=== PATIENT | female | born 1995 | race Caucasian/White ===

== ENCOUNTER 2017-10-08 20:45 | Emergency (ER) | payer BC, OTHER ==
[~2017-10-08] VITALS: Ht 154.9 cm; Wt 64.8 kg
[2017-10-08 21:05] VITALS: Ht 154.9 cm; Wt 64.8 kg
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
[2017-10-08] MEDS ORDERED: ACET650S9 PR (23:51)
== END 2017-10-09 00:56 | disposition left against medical advice (07) ==
LOC: FTE 20:45
DX: S09.90XA Unspecified injury of head, initial encounter (principal); V49.40XA Driver injured in collision with unspecified motor vehicles in traffic accident, initial encounter
CPT/HCPCS: 99283